=== PATIENT | female | born 2000 ===

== ENCOUNTER → 2025-05-19 21:01 | Outpatient (ROUT) | payer BC, SELFPAY ==
[2025-05-19 21:43] LABS: Influenza A - CEPHEID Flu A NEGATIVE (NEGATIVE); Influenza B - CEPHEID Flu B NEGATIVE (NEGATIVE)
[2025-05-19 21:44] LABS: COVID-19 CEPHEID 4-PLEX PCR Negative (Negative)
== END ==
PROVIDERS: Visit Provider Nurse Practitioner Obstetrics & Gynecology
DX: Z11.59 Encounter for screening for other viral diseases (principal); R05.1 Acute cough; R50.9 Fever, unspecified
CPT/HCPCS: 87637